=== PATIENT | male | born 1995 | race Asian ===

== ENCOUNTER 2017-04-27 20:08 | Emergency (ER) | payer BC ==
[~2017-04-27] VITALS: Ht 162.6 cm; Wt 52.2 kg
[~2017-04-27 20:08] MED LIST: CIPRO 500MG TA500 MG PO; IBUPROFEN 600M600 MG PO
--- OUTSIDE RECORDS SUMMARY | 2017-04-27 20:56 | External Medical Summary Rpt ---
Author Author , Organization [employer] Address Unknown Phone Unavailable Purpose Continuity of Care Document - 1997 through 2016 Immunization Name Date Route CVX Reacti Commen Provid Is Given on t er Refuse d DTaP, Histor H149 No UF 2001 ical Inform ation - Source Unspec ified MMR Histor H149 No 2001 ical Inform ation - Source Unspec ified Polio- Histor H149 No IPV 2001 ical Inform ation - Source Unspec ified Hib, Histor H149 No UF 1997 ical Inform ation - Source Unspec ified DTaP, Histor H149 No UF 1997 ical Inform ation - Source Unspec ified MMR Histor H149 No 1997 ical Inform ation - Source Unspec ified Varice Histor H149 No lla 1997 ical Inform ation - Source Unspec ified Polio- Histor H149 No IPV 1997 ical Inform ation - Source Unspec ified Hep B, Histor H149 No 1997 ical ped/ad Inform ol ation - Source Unspec ified Hib, Histor H149 No UF 1997 ical Inform ation - Source Unspec ified DTaP, Histor H149 No UF 1997 ical Inform ation - Source Unspec ified Hib, Histor H149 No UF 1996 ical Inform ation - Source Unspec ified Polio- Histor H149 No IPV 1996 ical Inform ation - Source Unspec ified DTaP, Histor H149 No UF 1996 ical Inform ation - Source Unspec ified Polio- Histor H149 No IPV 1996 ical Inform ation - Source Unspec ified DTaP, Histor H149 No UF 1996 ical Inform ation - Source Unspec ified Hib, Histor H149 No UF 1996 ical Inform ation - Source Unspec ified Hep B, Histor H149 No 1997 ical ped/ad Inform ol ation - Source Unspec ified
--- OUTSIDE RECORDS SUMMARY | 2017-04-27 20:56 | External Medical Summary Rpt ---
Author Author , Organization [employer] Address Unknown Phone Unavailable Purpose Continuity of Care Document - through 2016 Problems Code Diagnosis DOS Provider Status S91.339A PUNCTURE WOUND WITHOUT FOREIGN BODY, UNSP FOOT, INIT ENCNTR
--- OUTSIDE RECORDS SUMMARY | 2017-04-27 20:56 | External Medical Summary Rpt ---
Author Author [employer] Organization [employer] Address Unknown Phone Unavailable Purpose Continuity of Care Document - through 2016
--- NOTE | 2017-04-27 22:25 | Emergency Room Report ---
History of Present Illness Time Seen by 2030 Presenting Problem in Triage Pt arrived:Walked Presenting Problem:RIGHT EYE LACERATION. PT STATES HE WAS STANDING UNDER THE RAILROAD TRACKS AND HE TURNED AROUND QUICKLY AND RAN INTO A IRON BEAM. -LOC. 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 N Clinical Suspician of Infection? N Mental Status: 1 - Regular (Normal Baseline) Sepsis Risk:Low Sepsis RiskN Have you (or family members/close friends) recently traveled outside the [place]? N If Yes, where/when: Have you had exposure to infectious disease within the past month? TB? Other? Specify: Source patient, RN notes reviewed, family, old records Exam Limitations no limitations Comment ran into beam and has 1.5 cm lac rt eyebrow- no loc or ocular c/o Cardiac Chest Pain Chest pain indicative of cardiac No Timing/Duration this evening Severity moderate ALLERGIES Coded Allergies: Sulfa (Sulfonamide Antibiotics) (Intermediate, I-RASH 05/20/16) Home Medications Active Scripts IBUPROFEN MICRONIZED (IBUPROFEN 600MG) 600 MG PO Q8HP PRN pain #12 TAB Prov: 05/20/16 Ciprofloxacin HCl (Cipro 500MG TAB) 500 MG PO BID #10 TAB Prov: 05/20/16 History Medical History General CAD? No Angina: No [place]: No Hypertension? No Hyperlipidemia? No CHF? No DVT? No PE? No COPD? No Asthma? No Anemia? No GERD? No Gastric ulcers? No GI Bleed? No Hernia? No Thyroid Problems? No Hypothyroidism? No CVA? No Seizures? No Diabetes? No Renal Insuffiency? No End Stage Renal Disease? No UTI? No Stones? No BPH? No GB Disease: No Nephritic Syndrome? No Asplenia? No Hepatitis? No Sickle Cell Disease? No Arthritis? No Migraines? No Cataracts? No Glaucoma? No MRSA? No HIV? No TB? No Anxiety? No Depression? No Cancer? No More? No Immunization Hx DT/Tetanus 1-4 Years Ago Surgical Hx Previous Surgery?N Social History Smoking Hx Smoker: Never Smoker Tobacco: No Alcohol Alcohol: No Drugs none Review of Systems All Other Systems Reviewed and Negative Constitutional denies fever Eyes denies drainage ENT denies: ear pain, epistaxis, throat pain. Respiratory denies cough, denies shortness of breath, denies wheezing Cardiovascular denies chest pain, denies syncope Gastrointestinal denies abdominal pain, denies diarrhea, denies vomiting Genitourinary denies: frequency, hesitancy, hematuria. Musculoskeletal denies back pain, denies joint pain, denies neck pain Skin see HPI, denies rash, other Psychiatric/Neurological denies headache, denies seizure Physical Exam Vital Signs Vital Signs Date Time Temp Pulse Resp B/P Pulse O2 O2 Flow FiO2 Ox Delivery Rate 04/27 2050 67 20 144/84 98 04/27 2033 98.7 67 20 144/ 98 - WBC >12,000 or <4,000 or 10% bands? 2 or more SIRS Criteria Met? B/P:144/84 MAP:104 Creatinine >2.0? UA output<0.5ml/kg/hr for 2 hrs? Platelet count >100,000? Lactate >2.0mmol/1? INR >1.2 or PTT > than 60 sec? Evidence of Organ Dysfunction? Provider documented clinical suspician of infection? N Sepsis Criteria Count: 1 Sepsis Risk: Low Sepsis RiskN General Appearance no apparent distress Eye Exam - bilateral eye PERRL, bilateral eye EOMI Ear, Nose, Throat normal ENT inspection Neck supple Respiratory Status No: respiratory distress. 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 No Results/Orders Current Medication Orders Sig/Suzette Start time Last Medication Dose Route Stop Time Status Admin Lidocaine HCl 0 .STK-MED ONE 04/27 2132 DC .ROUTE Procedures Laceration/Wound Repair Laceration/Wound Repair Risks/benefits discussed with pt/guardian? Yes Tetanus status up to date Wound Location face Wound Length (cm) 1.5 Wound's Depth, Shape sucutaneous tissue Wound Explored no FB identified Risk of retained FB explained to pt/guardian? Yes Irrigated w/ Saline (ccs) 0 Wound Prep Hibiclens, Saline Anesthesia 1% Lidocaine, Local Volume Anesthetic (ccs) 3 Wound Debrided none Wound Repaired With sutures Suture Size/Type 4:0, Ethilon Layer Closure No Total Number Sutures 5 Sterile Dressing Applied Yes Splint Applied No Sling Applied No Departure Departure Time of Disposition 2219 Disposition DC Home or Self Care(routine) Clinical Impression Primary Impression: Laceration of eyebrow, right Qualifiers: Encounter type: initial encounter Qualified Code: S01.111A - Laceration without foreign body of right eyelid and periocular area, initial encounter Condition STABLE Referrals Edgar Pedroza MD (Family) Patient Instructions DI for Laceration Repair Additional Instructions keep clean and dry and sutures out 8 days and recheck if any problems Discharge Counseling Counseled pt/family regarding diagnosis, follow up needs ED Critical Care Critical Care No at 2224
[2017-04-27 22:32] VITALS: BP 116/56
== END 2017-04-27 22:32 | disposition home or self-care (01) ==
LOC: ER 20:08
PROC: 0HQ1XZZ Repair Face Skin, External Approach (ICD-10-PCS; principal; 2017-04-27)
DX: S01.111A Laceration without foreign body of right eyelid and periocular area, initial encounter (principal); W26.9XXA Contact with unspecified sharp object(s), initial encounter